=== PATIENT | male | born 1975 | race Caucasian/White ===

== ENCOUNTER 2025-03-23 00:27 | Day surgery (SDC) | payer OTHER, SELFPAY ==
[2025-03-12 12:44] VITALS: BMI 22.8
--- OUTSIDE RECORDS SUMMARY | 2025-03-23 00:30 | XMS_ITS | Referral Summary ---
Author Organization [facility] Address [address] [place] [address] Care Team Providers Care Assistant Professor Of Philosophy Name Role Phone Ashley Perez Primary Care Provider +1- [phone] Allergies No known active allergies Medications multivitamin-ir on-folic acid 18-400 mg-mcg tablet Rx: Centrum - Tablet; stop 5 days before surgery Active vitamin B comp with C no.4 150 mg tablet Rx: Super B Complex Active omega 0-pka-ayn-fish oil 500-1,000 mg capsuleIndicati ons:stop 5 days before surgery 500 mg 2 (two) times a day Active turmeric-herbal complex no.278 150 mg capsule Rx: Turmeric; stop 5 days before surgery Active ascorbic acid (VITAMIN C) 500 mg tablet,chewable Take one tablet twice daily 60 tablet/chew tab 9 Active cholecalciferol (VITAMIN D-3) 2,000 unit capsule Take 1 capsule (2,000 Units total) by mouth daily 30 capsule 9 Active triamcinolone (NASACORT) 55 mcg nasal inhaler Administer 2 sprays into each nostril daily 16.9 mL 1 0 Active Active Problems Problem Noted Date Diagnosed Date Colon cancer screening 08/19/2022 Assessment & Plan (08/19/2022 8:44 PM PULL SOCKET ASSEMBLER): Patient due for colon cancer screening. Reviewed the options of screening he prefers Cologuard. Order placed BMI 27.0-27.9,adult 08/09/2022 Assessment & Plan (08/09/2022 2:43 PM PULL SOCKET ASSEMBLER): Weight/BMI is in healthy range. Continue healthy lifestyle to maintain. Fatigue 08/12/2021 Assessment & Plan (08/12/2021 1:58 PM PULL SOCKET ASSEMBLER): Probably multifactorial. Check labs and followup to re-evaluate Lipid screening 08/12/2021 Assessment & Plan (08/12/2021 1:59 PM PULL SOCKET ASSEMBLER): Check labs Diabetes mellitus screening 08/12/2021 Assessment & Plan (08/12/2021 1:59 PM PULL SOCKET ASSEMBLER): Check labs Prostate cancer screening 08/12/2021 Assessment & Plan (08/12/2021 1:59 PM PULL SOCKET ASSEMBLER): Check labs Syncope 03/26/2021 Assessment & Plan (03/26/2021 9:52 AM CDT): From review of labs and his response to food and history I suspect this was a hypoglycemic event. Encouraged to eat small meals every 2 hours. Increase caloric intake and fluids. Should be shooting for closer to 1356-6831 calories and at least 80 gm protein daily. Discussed EKG today and he states he feels so would like to monitor. This doesn't seem to be of cardiac nature. If occurs again he is to go to the ER. He voices understanding. Annual physical exam 07/27/2019 Assessment & Plan (08/19/2022 8:44 PM PULL SOCKET ASSEMBLER): Encouraged healthy lifestyle, good nutrition and exercise. Encouraged Calcium and Vitamin D and weight bearing exercise for bone health. Reviewed immunizations Reviewed age appropirate screenings. Assessment & Plan (08/12/2021 1:58 PM PULL SOCKET ASSEMBLER): Encouraged healthy lifestyle, good nutrition and exercise. Encouraged Calcium and Vitamin D and weight bearing exercise for bone health. Reviewed immunizations Reviewed age appropirate screenings. Assessment & Plan (07/18/2020 9:55 PM PULL SOCKET ASSEMBLER): Encouraged healthy lifestyle, good nutrition and exercise. Encouraged Calcium and Vitamin D and weight bearing exercise for bone health. Reviewed immunizations Reviewed age appropirate screenings. Will await lab results Assessment & Plan (07/27/2019 3:52 PM PULL SOCKET ASSEMBLER): Encouraged healthy lifestyle, good nutrition and exercise. Encouraged Calcium and Vitamin D and weight bearing exercise for bone health. Reviewed immunizations Reviewed age appropirate screenings. Seasonal allergies 07/27/2019 Assessment & Plan (07/18/2020 9:56 PM PULL SOCKET ASSEMBLER): flonase causes nose bleeds. Will try nasacort AQ to see if more tolerable. Assessment & Plan (07/27/2019 3:52 PM PULL SOCKET ASSEMBLER): Continue Flonase Tear of medial meniscus of left knee, current Overview (04/22/2019): Added automatically from request for surgery [id number] Resolved Problems Problem Noted Date Diagnosed Date Resolved Date BMI 26.0-26.9,adult 07/24/2021 08/09/20 Assessment & Plan (07/24/2021 4:27 PM PULL SOCKET ASSEMBLER): Obesity is unchanged. Discussed the patient's BMI. The BMI is above average. BMI management plan is completed. BMI Follow-up includes: nutrition counseling, exercise counseling and education provided. BMI 26.0-26.9,adult 03/20/2021 07/24/20 Assessment & Plan (03/20/2021 5:16 PM CDT): Weight/BMI is in healthy range. Continue healthy lifestyle to maintain. BMI 24.0-24.9, adult 07/27/2019 021 Assessment & Plan (07/18/2020 9:55 PM PULL SOCKET ASSEMBLER): Weight/BMI is in healthy range. Continue healthy lifestyle to maintain. Assessment & Plan (07/27/2019 3:52 PM PULL SOCKET ASSEMBLER): Weight/BMI is in healthy range. Continue healthy lifestyle to maintain. Immunizations Immunization Administration Dates Next Due Influenza, Quadrivalent, Marquita l Culture-based MDCK, Preservative Free, Antibiotic Free, Intramuscular 05/30/2019 Influenza, Quadrivalent, Spl it, Preservative Free, Intramuscular 07/19/2015 Influenza, Unspecified 06/02/2021,07/03/2020,09/2017 Tdap 12/27/2017 Social History Tobacco Use Types Packs/Day Years Used Date Smoking Tobacco: Never Smokeless Tobacco: Never Tobacco Cessation:Counseling Given: Not Answered Alcohol Use Standard Drinks/Week Comments Yes 0 (1 standard drink = 0.6 oz pur e alcohol) occasionally AUDIT-C Answer Date Recorded Q1: How often do you have a drink containing alc ohol? Never 07/24/2021 Average Number of Drinks Not on file 021 Q3: How often do you have si x or more drinks on one occasion? Never 07/24/2021 PHQ-2 Answer Date Recorded PHQ-2 Total Score (If total score is 3 or more points, staff should administer the PHQ-9) 0 08/09/2022 Sex and Gender Information Value Date Recorded Sex Assigned at Not on file Legal Sex Male 7:18 PM PULL SOCKET ASSEMBLER Gender Identity Male 07/23/2021 8:45 AM PULL SOCKET ASSEMBLER Sexual Orientation Straight 07/23/2021 8: 45 AM PULL SOCKET ASSEMBLER Last Filed Vital Signs Vital Sign Reading Time Taken Comments Blood Pressure 118/84 08/09/2022 2:58 PM PULL SOCKET ASSEMBLER Pulse 69 08/09/2022 2:40 PM PULL SOCKET ASSEMBLER Temperature 36.7 C (98 F) 08/09/2022 2:40 PM PULL SOCKET ASSEMBLER Respiratory Rate 18 05/07/2019 3:00 PM CDT Oxygen Saturation 97% 08/09/2022 2:40 PM PULL SOCKET ASSEMBLER Inhaled Oxygen Concentration - - Weight 80.9 kg (178 lb 4.8 oz) 08/09/2022 2:40 P M PULL SOCKET ASSEMBLER Height 172.7 cm (5' 8) 08/09/2022 2:40 PM PULL SOCKET ASSEMBLER Body Mass Index 27.11 08/09/2022 2:40 PM PULL SOCKET ASSEMBLER Plan of Treatment Not on file Medical Devices Implanted Type Area Varnish Remover Device Identifier Shelf Expiration Date Model / Serial / Lot Depuy Mitek [id number] Truespan Orthocord Non Absorbable 2 Backstop Braid Needle 12d 2-0 - [id number] Implanted:Qty: 1 on 05/07/2019 by Jese Gutierrez MD at [facility] Left: Knee Depuy Mitek 01/30/2022 [id number] / / [id number] Depuy Mitek [id number] Truespan Orthocord Non Absorbable 2 Backstop Braid Needle 12d 2-0 - [id number] Implanted:Qty: 1 on 05/07/2019 by Jese Gutierrez MD at [facility] Left: Knee Depuy Mitek 11/30/2021 [id number] / / [id number] Procedures Procedure Name Priority Date/Time Associated Diagnosis Comments STOOL DNA COLOGUARD Routine 08/15/2022 4:00 PM PULL SOCKET ASSEMBLER Colon cancer screening from Last 3 Months or Most Recently Relevant to Health Maintenance Results * Stool DNA - Cologuard (08/15/2022 4:00 PM PULL SOCKET ASSEMBLER) Pathologist [facility] Stool DNA - Cologuard Negative Negative [employer] (CLIA #:[id number]) Comment: NEGATIVE TEST RESULT. A negative Cologuard result indicates a low likelihood that a colorectal cancer (CRC) or advanced adenoma (adenomatous polyps with more advanced pre-malignant features) is present. The chance that a person with a negative Cologuard test has a colorectal cancer is less than 1 in 1500 (negative predictive value >99.9%) or has an advanced adenoma is less than 5.3% (negative predictive value 94.7%). These data are based on a prospective cross-sectional study of 10,000 individuals at average risk for colorectal cancer who were screened with both Cologuard and colonoscopy. (Inga Martino al, N Engl J Med 2014;370(14):0606-8419) The normal value (reference range) for this assay is negative. COLOGUARD RE-SCREENING RECOMMENDATION: Periodic colorectal cancer screening is an important part of preventive healthcare for asymptomatic individuals at average risk for colorectal cancer. Following a negative Cologuard result, the [place] Cancer Society and U.S. Multi-Society Task Force screening guidelines recommend a Cologuard re-screening interval of 3 years. References: [place] Cancer Society Guideline for Colorectal Cancer Screening: https://www.cancer.org/cancer/gpxnc-sxlogx-lqnukh/tqbgvhejz-zkvvpvlzd-yuevnxq/ac s-rec ommendations.html.; Scott MONTOYA, Jose STOKES, Layla BROWN, Colorectal Cancer Screening: Recommendations for Physicians and Patients from the U.S. Multi-Society Task Force on Colorectal Cancer Screening , Am J Gastroenterology 2017; 112:4641-2371. TEST DESCRIPTION: Composite algorithmic analysis of stool DNA-biomarkers with hemoglobin immunoassay. Quantitative values of individual biomarkers are not reportable and are not associated with individual biomarker result reference ranges. Cologuard is intended for colorectal cancer screening of adults of either sex, 45 years or older, who are at average-risk for colorectal cancer (CRC). Cologuard has been approved for use by the U.S. FDA. The performance of Cologuard was established in a cross sectional study of average-risk adults aged 50-84. Cologuard performance in patients ages 45 to 49 years was estimated by sub-group analysis of near-age groups. Colonoscopies performed for a positive result may find as the most clinically significant lesion: colorectal cancer [4.0%], advanced adenoma (including sessile serrated polyps greater than or equal to 1cm diameter) [20%] or non- advanced adenoma [31%]; or no colorectal neoplasia [45%]. These estimates are derived from a prospective cross-sectional screening study of 10,000 individuals at average risk for colorectal cancer who were screened with both Cologuard and colonoscopy. (Inga Martino al, N Engl J Med 2014;370(14):0292-0775.) Cologuard may produce a false negative or false positive result (no colorectal cancer or precancerous polyp present at colonoscopy follow up). A negative Cologuard test result does not guarantee the absence of CRC or advanced adenoma (pre-cancer). The current Cologuard screening interval is every 3 years. ([place] Cancer Society and U.S. Multi-Society Task Force). Cologuard performance data in a 10,000 patient pivotal study using colonoscopy as the reference method can be accessed at the following location: www.exactlabs.com/results. Additional description of the Cologuard test process, warnings and precautions can be found at www.cologuard.com. Stool 08/15/2022 4:00 PM PULL SOCKET ASSEMBLER 08/16/2022 11:17 AM PULL SOCKET ASSEMBLER Ashley [facility] BODY FLUIDS AND STOOLS ORDERABLES Final Result [employer] (CLIA #:[id number]) [address] [place] [address] from Last 3 Months or Most Recently Relevant to Health Maintenance Insurance [facility] CHOICE PLUS Member Subscriber Plan / Payer (Ef fective 2018-Present) Name:Balaji Salter Relation to Subscriber:Self Name:Balaji Salter Payer ID:[id number] (NAIC) Type:[facility] HMO/PPO Address: [address] CHOICE PLUS [place] [phone] [facility] CHOICE PLUS Care Teams Assistant Professor Of Philosophy Relationship Specialty Start Date End Date Ashley Perez PA [address] [facility] [address] [place] [address] PCP - General Internal Medicine 07/28/19
--- OUTSIDE RECORDS SUMMARY | 2025-03-23 00:30 | XMS_ITS | Encounter Summary ---
Author Organization [facility] Address [address] [place] [address] Care Team Providers Care Mine Administrator Supervisor Name Role Phone Vianey Juarez NP Primary Care Provider +1 -[phone] Encounter Details Date Type Department Care Team (Late Contact Info) Description 09/28/2024 Plannifyt Message Enc [facility] [address] [facility] [address] [place] [address] [phone] Vianey Juarez NP [address] [place] [address] [place] [phone] GFR estimate Social History Tobacco Use Types Packs/Day Years Used Date Smoking Tobacco: Never Passive Smoke Exposure: Never Smokeless Tobacco: Never Alcohol Use Standard Drinks/Week Comments Yes 1 (1 standard drink = 0.6 oz pur e alcohol) PHQ-2 Answer Date Recorded Patient Health Questionnaire-2 Score 0 08/31/2024 Sex and Gender Information Value Date Recorded Sex Assigned at Male 03/09/2025 11:27 AM CDT Legal Sex Male 11:50 AM SINTER MACHINE OPERATOR Gender Identity Male 03/09/2025 11:27 AM CDT Sexual Orientation Not on file documented as of this encounter Plan of Treatment Upcoming Encounters Date Type Department Care Team (Late Contact Info) Description 09/09/2025 8:20 AM SINTER MACHINE OPERATOR Office Visit [facility] [address] [facility] [address] [place], [place] [phone] Vianey Juarez NP [address] [place] [address] documented as of this encounter Visit Diagnoses Not on filedocumented in this encounter Care Teams Mine Administrator Supervisor Relationship Specialty Start Date End Date Vianey Juarez NP [address] [place], [place] [address] PCP - General NURSE PRACTITIONER 08/15/22 documented as of this encounter
--- OUTSIDE RECORDS SUMMARY | 2025-03-23 00:30 | XMS_ITS | Encounter Summary ---
Author Organization [facility] Address [address] [place] [address] Care Team Providers Care Budget Controller Name Role Phone Vianey Juarez NP Primary Care Provider [phone] [phone] Encounter Details Date Type Department Care Team (Late st Contact Info) Description 02/24/2025 MyChart Message Enc [facility] [address] [facility] [address] [place] [phone] Vianey Juarez NP [address] [place] [address] [place] [address] Blood after using restroom Social History Tobacco Use Types Packs/Day Years [...] AM CDT Legal Sex Male 11:50 AM RELIGIOUS EDUCATION COORDINATOR Gender Identity Male 03/09/2025 11:27 AM CDT Sexual Orientation Not on file documented as of this encounter Plan of Treatment Upcoming Encounters Date Type Department Care Team (Late st Contact Info) Description 09/09/2025 8:20 AM RELIGIOUS EDUCATION COORDINATOR Office Visit [facility] [address] [facility] [address] [place] [address] Vianey Juarez NP [address] [place] [address] documented as of this encounter Visit Diagnoses Not on filedocumented in this encounter Care Teams Budget Controller Relationship Specialty Start Date End Date Vianey Juarez NP [address] [place] [address] PCP - General NURSE PRACTITIONER 08/15/22 documented as of this encounter
--- OUTSIDE RECORDS SUMMARY | 2025-03-23 00:30 | XMS_ITS | Clinical Summary ---
Author Organization [facility] Address [facility] [place] [address] Care Team Providers Care Sexual Assault Nurse Name Role Phone Vianey Juarez NP Primary Care Provider [phone] [phone] Allergies No known active allergies Medications Multiple Vitamins-Mineral s (CENTROVITE) Tab Rx: Centrum - Tablet; stop 5 days before surgery Active Misc Natural Products (IN-FLA-MEND) Cap Rx: Turmeric; stop 5 days before surgery Active B Complex Vitamins (VITAMIN-B COMPLEX OR) Rx: Super B Complex Active KRILL OIL OR Active Magnesium Oxide (MAG-CAPS OR) Active Multiple Vitamins-Mineral s (ZINC OR) Active Ascorbic Acid (VITAMIN C OR) Activ e Ergocalciferol (VITAMIN D OR) Activ e SUMAtriptan (IMITREX) 25 MG tabletIndication s:Migraine without aura and without status migrainosus, not intractable Take 1 tablet (25 mg total) by mouth 2 (two) times daily as needed for Migraine. Max of 8 tablets (200 mg) in a 24 hour period. 8 tablet 3 Active CLOMID 50 MG Tab 4 Active clotrimazole-bet amethasone (LOTRISONE) cream APPLY A PEA SIZED AMOUNT OF CREAM TOPICALLY TO AFFECTED AREA TWICE DAILY 4 Active Active Problems Problem Noted Date Diagnosed Date Migraine without aura and wi thout status migrainosus, not intractable 08/31/2022 Encounters Date Type Department Care Team Description 03/09/2025 11:20 AM CDT Office Visit [address] [place] [address] Vianey Juarez, DARRION Blood In Stool (Patient presents with c/o blood in stool x 2 months) 03/09/2025 Travel 02/24/2025 MyChart Message Enc [place] [phone] [facility] [address] [place] [address] Vianey Juarez, DARRION Blood after using restroom from Last 3 Months Immunizations Immunization Administration Dates Next Due Fluzone (IIV3, Trivalent, 0. 5 ML Prefilled Syringe) 08/31/2024 Fluzone 6 Months+ Quad (0.5 mL Prefilled Syringe) 08/29/2022 Influenza (Generic) 06/02/2021,07/03/2020,2017 Influenza Adult (Generic) 05/20/2023,05/30/2019, 07/19/2015 PFIZER COVID-19 (ORIGINAL FO RMULATION, PURPLE CAP) mRNA, LNP-S, PF, 30 MCG/0.3 ML DOSE 08/28/2021,11/17/2020,10/27/2020 Tdap (Generic) 12/27/2017 Family History Medical History Relation Comments Hypertension Brother 1 Hypertension Brother 2 Cancer Father prostate cancer Diabetes Father Hypertension Father Kidney Disease Mother Relation Status Comments Brother 1 Brother 2 Alive Father Alive Mother Social History Tobacco Use Types Packs/Day Years Used Date Smoking Tobacco: Never Passive Smoke Exposure: Never Smokeless Tobacco: Never Tobacco Cessation:Counseling Given: No Alcohol Use Standard Drinks/Week Comments Yes 1 (1 standard drink = 0.6 oz pur e alcohol) PHQ-2 Answer Date Recorded Patient Health Questionnaire-2 Score 0 03/09/2025 Sex and Gender Information Value Date Recorded Sex Assigned at Male 03/09/2025 11:27 AM CDT Legal Sex Male 11:50 AM NURSING INFORMATION SYSTEMS COORDINATOR Gender Identity Male 03/09/2025 11:27 AM CDT Sexual Orientation Not on file Last Filed Vital Signs Vital Sign Reading Time Taken Comments Blood Pressure 90/66 03/09/2025 11:28 AM CDT Pulse 70 03/09/2025 11:28 AM CDT Temperature 36.6 C (97.9 F) 03/09/2025 11:28 AM CDT Respiratory Rate 18 03/09/2025 11:28 AM CDT Oxygen Saturation 97% 03/09/2025 11:28 AM CDT Inhaled Oxygen Concentration - - Weight 71.2 kg (157 lb) 03/09/2025 11:28 AM CDT Height 170.2 cm (5' 7) 03/09/2025 11:28 AM CDT Body Mass Index 24.59 03/09/2025 11:28 AM CDT Plan of Treatment Upcoming Encounters Date Type Department Care Team (Late st Contact Info) Description 09/09/2025 8:20 AM NURSING INFORMATION SYSTEMS COORDINATOR Office Visit [facility] - [place] [address] [facility] [address] [place], [place] [phone] Vianey Juarez, DARRION [address] [place], [place] [phone] Health Maintenance Due Date Last Done Comments Hepatitis B Vaccines (1 of 3 - 19+ 3-dose series) 1995 COVID-19 Vaccine ( season) 2024 05/20/2023, 08/28/2021, 11/17/2020, Additional history exists Annual Physical 08/31/2025 08/31/2024, 08/03, 08/29/2022 Colorectal Cancer Screening FIT-DNA (3 Years) 11/20/2027 11/19/2024, 11/19/2024, 08/15/2022 DTaP, Tdap and Td Vaccines (2 - Td or Tdap) 12/28/2027 12/27/2017 Hepatitis C Completed 08/17/2023 PHQ-2 (Physician [place]) Completed 03/09/2025 Meningococcal B Vaccine Aged Out No l onger eligible based on patient's age to complete this topic Meningococcal Vaccine Aged Out No khushi bebe eligible based on patient's age to complete this topic Pneumococcal Vaccine: Pediatrics (0 to 5 Years) and At-Risk Patients (6 to 49 Years) Aged Out No longer eligible based on patient's age to complete this topic RSV Immunizations Under 20 Months Aged Out No longer eligible based on patient's age to complete this topic Procedures Procedure Name Priority Date/Time Associated Diagnosis Comments COLOGUARD (EXACT SCIENCE) Routine 11/19/2024 6:15 AM CDT Screening for colon cancer HEPATITIS C ANTIBODY W/RFX TO HCV RNA Routine 08/17/2023 8:43 AM NURSING INFORMATION SYSTEMS COORDINATOR Need for hepatitis C screening test from Last 3 Months or Most Recently Relevant to Health Maintenance Results * COLOGUARD (EXACT SCIENCE) (11/19/2024 6:15 AM CDT) COLOGUARD RESULT Negative Negative [employer] (CLIA #:[id number]) Comment: NEGATIVE TEST RESULT. A negative Cologuard [...] (Inga Martino al, N Engl J Med 2014;370(14):0359-9601) The normal value (reference range) for this assay is negative. COLOGUARD RE-SCREENING RECOMMENDATION: Periodic colorectal cancer screening is an important part of preventive healthcare for asymptomatic individuals at average risk for colorectal cancer. Following a negative Cologuard result, the [place] Cancer Society and U.S. Multi-Society Task Force screening guidelines recommend a Cologuard re-screening interval of 3 years. References: [place] Cancer Society Guideline for Colorectal Cancer Screening: https://www.cancer.org/cancer/mbecx-vtppvz-vokwfy/gfnekmbke-ctisqracv-myfkhyz/ac s-rec ommendations.html.; c[employer]ott MONTOYA, Jose STOKES, Layla BROWN, Colorectal Cancer Screening: Recommendations for Physicians and Patients from the U.S. Multi-Society Task Force on Colorectal Cancer Screening , Am J Gastroenterology 2017; 112:3740-7905. TEST DESCRIPTION: Composite algorithmic analysis of stool [...] were screened with both Cologuard and colonoscopy. (Inag Biggs et al, N Engl J Med 2014;370(14):4957-0427.) Cologuard may produce a false negative or false positive result (no colorectal cancer or precancerous polyp present at colonoscopy follow up). A negative Cologuard test result does not guarantee the absence of CRC or advanced adenoma (pre-cancer). The current Cologuard screening interval is every 3 years. ([place] Cancer Society and U.S. Multi-Society Task Force). Cologuard performance data in a 10,000 patient pivotal study using colonoscopy as the reference method can be accessed at the following location: www.proteonomix.WhatsOpen/results. Additional description of the Cologuard test process, warnings and precautions can be found at www.ClickToShoprd.com. STOOL STOOL SPECIMEN / Unknown 11/19/2024 6:15 AM CDT 11/20/2024 9:31 AM CDT us Vianey Juarez NP BODY FLUIDS AND STOOLS OR DERABLES Final Result [facility] [address] [place] [address], [employer] (CLIA #:[id number]) [address] [place] [address] * HEPATITIS C ANTIBODY W/RFX TO HCV RNA (08/17/2023 8:43 AM NURSING INFORMATION SYSTEMS COORDINATOR) HEPATITIS C AB Non Reactive Non Reacti [facility] 1 INTERPRETATION Comment [facility] 1 Comment: Not infected with HCV unless early or acute infection is suspected (which may be delayed in an immunocompromised individual), or other evidence exists to indicate HCV infection. 08/17/2023 8:43 AM NURSING INFORMATION SYSTEMS COORDINATOR 08/17/2023 Narrative [facility] - 08/18/2023 9:06 AM NURSING INFORMATION SYSTEMS COORDINATOR Performed at: 01 - [facility] [id number] Sack Maker: Moses Tovar PhD, Phone: [phone] Vianey Juarez NP LABORATORY Final Res ult Performing Organization Address City/State/[facility] Co de Phone Number [facility] [address] [place] [address] [facility] 1 from Last 3 Months or Most Recently Relevant to Health Maintenance Insurance [facility] Care Teams Sexual Assault Nurse Relationship Specialty Start Date End Date Vianey Juarez NP [address] [place] [address] PCP - General NURSE PRACTITIONER 08/15/22
--- OUTSIDE RECORDS SUMMARY | 2025-03-23 00:30 | XMS_ITS | Clinical Summary ---
Author Organization [facility] Address [address] [place] [address] Care Team Providers Care Drafter Apprentice Name Role Phone Ashley Perez Primary Care Provider [phone] Allergies No known active allergies Medications multivitamin-ir on-folic acid 18-400 mg-mcg tablet Rx: Centrum - Tablet; stop 5 days before surgery Active vitamin B comp with C no.4 150 mg tablet Rx: Super B Complex Active omega 1-san-gwd-fish oil 500-1,000 mg capsuleIndicati ons:stop 5 days [...] 08/19/2022 Assessment & Plan (08/19/2022 8:44 PM SEMI DRIVER): Patient due for colon cancer screening. Reviewed the options of screening he prefers Cologuard. Order placed BMI 27.0-27.9,adult 08/09/2022 Assessment & Plan (08/09/2022 2:43 PM SEMI DRIVER): Weight/BMI is in healthy range. Continue healthy lifestyle to maintain. Fatigue 08/12/2021 Assessment & Plan (08/12/2021 1:58 PM SEMI DRIVER): Probably multifactorial. Check labs and followup to re-evaluate Lipid screening 08/12/2021 Assessment & Plan (08/12/2021 1:59 PM SEMI DRIVER): Check labs Diabetes mellitus screening 08/12/2021 Assessment & Plan (08/12/2021 1:59 PM SEMI DRIVER): Check labs Prostate cancer screening 08/12/2021 Assessment & Plan (08/12/2021 1:59 PM SEMI DRIVER): Check labs Syncope 03/26/2021 Assessment & Plan (03/26/2021 9:52 AM CDT): From review of labs and his response to food and history I suspect this was a hypoglycemic event. Encouraged to eat small meals every 2 hours. Increase caloric intake and fluids. Should be shooting for closer to 9700-6353 calories and at least 80 gm protein daily. Discussed EKG today and he states he feels so would like to monitor. This doesn't seem to be of cardiac nature. If occurs again he is to go to the ER. He voices understanding. Annual physical exam 07/27/2019 Assessment & Plan (08/19/2022 8:44 PM SEMI DRIVER): Encouraged healthy lifestyle, good nutrition and exercise. Encouraged Calcium and Vitamin D and weight bearing exercise for bone health. Reviewed immunizations Reviewed age appropirate screenings. Assessment & Plan (08/12/2021 1:58 PM SEMI DRIVER): Encouraged healthy lifestyle, good nutrition and exercise. Encouraged Calcium and Vitamin D and weight bearing exercise for bone health. Reviewed immunizations Reviewed age appropirate screenings. Assessment & Plan (07/18/2020 9:55 PM SEMI DRIVER): Encouraged healthy lifestyle, good nutrition and exercise. Encouraged Calcium and Vitamin D and weight bearing exercise for bone health. Reviewed immunizations Reviewed age appropirate screenings. Will await lab results Assessment & Plan (07/27/2019 3:52 PM SEMI DRIVER): Encouraged healthy lifestyle, good nutrition and exercise. Encouraged Calcium and Vitamin D and weight bearing exercise for bone health. Reviewed immunizations Reviewed age appropirate screenings. Seasonal allergies 07/27/2019 Assessment & Plan (07/18/2020 9:56 PM SEMI DRIVER): flonase causes nose bleeds. Will try nasacort AQ to see if more tolerable. Assessment & Plan (07/27/2019 3:52 PM SEMI DRIVER): Continue Flonase Tear of medial meniscus of left knee, current Overview (04/22/2019): Added automatically from request for surgery [id number] Resolved Problems Problem Noted Date Diagnosed Date Resolved Date BMI 26.0-26.9,adult 07/24/2021 08/09/20 Assessment & Plan (07/24/2021 4:27 PM SEMI DRIVER): Obesity is unchanged. Discussed the patient's BMI. The BMI is above average. BMI management plan is completed. BMI Follow-up includes: nutrition counseling, exercise counseling and education provided. BMI 26.0-26.9,adult 03/20/2021 07/24/20 Assessment & Plan (03/20/2021 5:16 PM CDT): Weight/BMI is in healthy range. Continue healthy lifestyle to maintain. BMI 24.0-24.9, adult 07/27/2019 021 Assessment & Plan (07/18/2020 9:55 PM SEMI DRIVER): Weight/BMI is in healthy range. Continue healthy lifestyle to maintain. Assessment & Plan (07/27/2019 3:52 PM SEMI DRIVER): Weight/BMI is in healthy range. Continue healthy lifestyle to maintain. Immunizations Immunization Administration Dates Next Due Influenza, Quadrivalent, Marquita l Culture-based MDCK, Preservative Free, Antibiotic Free, Intramuscular 05/30/2019 Influenza, Quadrivalent, Spl it, Preservative Free, Intramuscular 07/19/2015 Influenza, Unspecified 06/02/2021,07/03/2020,09/2017 Tdap 12/27/2017 Surgical History Surgery Date Site/Laterality Comments KNEE ARTHROSCOPY Family History Medical History Relation Name Comments Diabetes Father Hyperlipidemia Father Hypertension Father No Known Problems Mother Arthritis Other Cancer Other Diabetes Other Heart disease Other Kidney disease Other Relation Name Status Comments Father Alive Mother Alive Other Social History Tobacco Use Types Packs/Day Years [...] on file Legal Sex Male 7:18 PM SEMI DRIVER Gender Identity Male 07/23/2021 8:45 AM SEMI DRIVER Sexual Orientation Straight 07/23/2021 8: 45 AM SEMI DRIVER Obstetrics History Last Filed Vital Signs Vital Sign Reading Time Taken Comments Blood Pressure 118/84 08/09/2022 2:58 PM SEMI DRIVER Pulse 69 08/09/2022 2:40 PM SEMI DRIVER Temperature 36.7 C (98 F) 08/09/2022 2:40 PM SEMI DRIVER Respiratory Rate 18 05/07/2019 3:00 PM CDT Oxygen Saturation 97% 08/09/2022 2:40 PM SEMI DRIVER Inhaled Oxygen Concentration - - Weight 80.9 kg (178 lb 4.8 oz) 08/09/2022 2:40 P M SEMI DRIVER Height 172.7 cm (5' 8) 08/09/2022 2:40 PM SEMI DRIVER Body Mass Index 27.11 08/09/2022 2:40 PM SEMI DRIVER Plan of Treatment Health Maintenance Due Date Last Done Comments Hepatitis C Screening 1976 Hepatitis B Screening 1994 Depression Screening 08/09/2023 08/09/2022, 07/24/2021, 07/18/2020, Additional history exists Regular Well Visit/Exam 18-64 08/09/2023 08/09/2022, 07/24/2021, 07/18/2020, Additional history exists Covid-19 Vaccine ( season) 2024 08/28/2021, 11/17/2020, 10/27/2020 Influenza Vaccine (#1) 2025 3, 06/02/2021, 07/03/2020, Additional history exists Colon Cancer Screening-DNA Stool 08/15/2025 08/15/2022 DTaP/Tdap/Td Vaccine (2 - Td or Tdap) 12/28/2027 12/27/2017 Pneumococcal vaccine <65 Aged Out No longer eligible based on patient's age to complete this topic Medical Devices Implanted Type Area Special Agent Group Insurance Device Identifier Shelf Expiration Date Model / Serial / Lot Depuy [employer]itek [id number] Truespan Orthocord Non Absorbable 2 Backstop Braid Needle 12d 2-0 - [id number] Implanted:Qty: 1 on 05/07/2019 by Jese Gutierrez MD at [facility] Left: Knee Depuy [employer] 01/30/2022 [id number] / / [id number] Depuy [employer] [id number] Truespan Orthocord Non Absorbable 2 Backstop Braid Needle 12d 2-0 - [id number] Implanted:Qty: 1 on 05/07/2019 by Jese Gutierrez MD at [facility] Left: Knee [employer]uy [employer] 11/30/2021 [id number] / / [id number] Procedures Procedure Name Priority Date/Time Associated Diagnosis Comments STOOL DNA COLOGUARD Routine 08/15/2022 4:00 PM SEMI DRIVER Colon cancer screening from Last 3 Months or Most Recently Relevant to Health Maintenance Results * Stool DNA - Cologuard (08/15/2022 4:00 PM SEMI DRIVER) Stool DNA - Cologuard Negative Negative [facility] (CLIA #:[id number]) Comment: NEGATIVE TEST RESULT. A negative Cologuard [...] (Inga Martino al, N Engl J Med 2014;370(14):4979-5379) The normal value (reference range) for this assay is negative. COLOGUARD RE-SCREENING RECOMMENDATION: Periodic colorectal cancer screening is an important part of preventive healthcare for asymptomatic individuals at average risk for colorectal cancer. Following a negative Cologuard result, the [place] [employer] Society and U.S. Multi-Society Task Force screening guidelines recommend a Cologuard re-screening interval of 3 years. References: [place] [employer] Guideline for Colorectal Cancer Screening: https://www.cancer.org/cancer/nqxwp-chgopt-demfuz/emozpqrit-qyyoafjtx-mtyupnk/ac s-rec ommendations.html.; Scott DK, Jose CR, Layla PaigeK, Colorectal Cancer Screening: Recommendations for Physicians and Patients from the U.S. Multi-Society Task Force on Colorectal Cancer Screening , Am J Gastroenterology 2017; 112:0523-9569. TEST DESCRIPTION: Composite algorithmic analysis of stool [...] screened with both Cologuard and colonoscopy. (Inga Biggs et al, N Engl J Med 2014;370(14):0420-6058.) Cologuard may produce a false negative or false positive result (no colorectal cancer or precancerous polyp present at colonoscopy follow up). A negative Cologuard test result does not guarantee the absence of CRC or advanced adenoma (pre-cancer). The current Cologuard screening interval is every 3 years. ([place] [employer] Society and U.S. Multi-Society Task Force). Cologuard performance data in a 10,000 patient pivotal study using colonoscopy as the reference method can be accessed at the following location: www.Zerve.YouEarnedIt/results. Additional description of the Cologuard test process, warnings and precautions can be found at www.cologuard.com. Stool 08/15/2022 4:00 PM SEMI DRIVER 08/16/2022 11:17 AM SEMI DRIVER Ashley [facility] FLUIDS AND STOOLS ORDERABLES Final Result [facility] (CLIA #:[id number]) [place] [place] [place] [address] from Last 3 Months or Most Recently Relevant to Health Maintenance Insurance [facility] [employer] [facility] [facility] Address: [address] [employer] [facility] Address: [place] [address] [facility] [employer] [facility] [facility] [employer] Address: [address] [place] [address] Care Teams Drafter Apprentice Relationship Specialty Start Date End Date Ashley Perez PA [address] [facility] [address] [place] [address] PCP - General Internal Medicine 07/28/19
[2025-03-23 09:12] VITALS: BP 108/76; PULSE 66; RESP 18; TEMP 36.3; O2SAT 100
[2025-03-23] MEDS: LACTATED RINGERS 1,000 ML 150 ML IV CONT (09:23)
--- NOTE | 2025-03-23 09:57 | WPDANESEPPF ---
Anes - Initial Pre Proc Eval Procedure: Operation Date: 03/23/25 10:30 Proposed Procedures p Diagnostic Colonoscopy - Artur Sullivan MD Date/Time: 03/23/25 09:57 Surgeon: Artru Sullivan MD Pre Op Diagnosis: Melena Patient Data Age: 49 Gender: M Height: 1.73 m Weight: 67.1 kg Last Vital Signs Temp 97.4 F L 03/23/25 09:12 Pulse 66 03/23/25 09:12 Resp 18 03/23/25 09:12 BP 108/76 03/23/25 09:12 Pulse Ox 100 03/23/25 09:12 O2 Del Method Room Air 03/23/25 09:12 Allergies Allergy/AdvReac Type Severity Reaction Status Date / Time No Known Allergies Allergy Verified 03/23/25 09:11 Home Medications ?Medication ?Instructions ?Recorded ?Confirmed ?Type No Home Medications 03/12/25 03/23/25 History Patient hx anesthesia problems: none Family hx anesthesia problems: none Results Review: All pre-operative results and documents have been reviewed as part of the pre-operative evaluation. [facility] Family History Family History Father Family history of diabetes mellitus in first degree relative Social History Social History Smoking status: Never smoker Alcohol intake: current Substance use type: does not use Living arrangements: with family Additional living arrangements comments: with sp Anes - Eval Final PreProcedure Day of Procedure 03/23/25 09:57 Patient weight: normal Lungs: normal air movement Airway: Mallampati scale class II Neurological: alert and oriented Last oral intake: >/= 8 hours ASA classification: I Emergent: no Anesthetic plan: proceed Anesthesia type and monitoring: general GIVS and standard monitoring Results Review: All pre-operative results and documents have been reviewed as part of the pre-operative evaluation. Healthy, active w barbell workouts daily, no cp or sob. Informed Consent: The patient's anesthetic plan and its attendant risks and benefits were discussed with the patient/family/POA. Questions were solicited and answers provided to the satisfaction of the patient/family/POA.
--- NOTE | 2025-03-23 10:30 | SUR.PREOP ---
PT AND PT FAMILY UPDATED PROCEDURE ROOM RUNNING LATE PAST SCHEDULED PROCEDURE TIME. PT STATES NO CONCERNS.
--- NOTE | 2025-03-23 11:21 | PM.IMHP ---
H&P: HPI History of Present Illness Date/Time: 03/23/25 11:21 Chief Complaint: Screening colonoscopy Narrative: This is the patient's first colonoscopy. There are no GI symptoms and there is no family history of colorectal cancer. Review of Systems Review of Systems: All systems reviewed & are unremarkable except as noted in HPI and below PMFSH Family History Family History Father Family history of diabetes mellitus in first degree relative Social History Social History Smoking status: Never smoker Alcohol intake: current Substance use type: does not use Living arrangements: with family Additional living arrangements comments: with sp Meds Home Medications and Allergies Home Medications ?Medication ?Instructions ?Recorded ?Confirmed ?Type No Home Medications 03/12/25 03/23/25 History Allergies Allergy/AdvReac Type Severity Reaction Status Date / Time No Known Allergies Allergy Verified 03/23/25 09:11 Vital Signs Vital Signs - 24 hr 03/23/25 09:12 Temperature 97.4 F L Pulse Rate 66 Respiratory Rate 18 Blood Pressure 108/76 Pulse Oximetry 100 Oxygen Delivery Room Air Exam Const: General: cooperative and healthy appearing Resp: Effort & Inspection: normal respiratory effort and able to speak in complete sentences Auscultation: clear to auscultation bilaterally Cardio: Rate: regular rate Rhythm: regular rhythm GI: Inspection: normal to inspection GI Palp: No No hepatosplenomegaly present Auscultation: normal bowel sounds Rectal Exam: deferred Skin: General skin exam: normal color Psych: Appearance: grossly normal Mental Status: mental status grossly normal Assessment and Plan Assessment and plan (1) Encounter for screening colonoscopy: Code(s): Z12.11 - Encounter for screening for malignant neoplasm of colon Status: Acute Assessment and Plan: This is the patient's first colonoscopy. There are no GI symptoms and there is no family history of colorectal cancer.
[2025-03-23] MEDS: SIMETHICONE ORAL SUSPENSION 20 MG/0.3 ML 30 ML BOTTLE 0.6 ML IRRIGATION (11:32)
[2025-03-23 11:42] VITALS: BP 80/53; PULSE 79; RESP 22; O2SAT 96
[2025-03-23 11:52] VITALS: BP 78/58; PULSE 71; RESP 29; O2SAT 96
[2025-03-23 12:02] VITALS: BP 102/56; PULSE 72; RESP 29; O2SAT 96
== END 2025-03-23 12:16 | disposition home or self-care (01) ==
PROVIDERS: PCP Nurse Practitioner; Referring Provider Nurse Practitioner; Visit Provider Internal Medicine Gastroenterology
PROC: 0DJD8ZZ Inspection of Lower Intestinal Tract, Via Natural or Artificial Opening Endoscopic (ICD-10-PCS; CPT 45378; principal; 2025-03-23 10:30)
DX: Z12.11 Encounter for screening for malignant neoplasm of colon (principal)
CPT/HCPCS: 45378; J2003; J2704; J7120